=== PATIENT | male | born 1990 | race African-American/Black ===

== ENCOUNTER 2018-01-04 12:03 | Emergency (ER) | payer OTHER ==
[2018-01-04 12:48] LABS: ADD MAN DIFF? NO
[2018-01-04 12:58] LABS: BASO % 1 % (0-3); EOS # 0.3 x10^3/uL (0.0-0.7); EOS % 8 % (0-3); HEMATOCRIT 43.7 % (39.0-53.0); HEMOGLOBIN 15.2 g/dL (13.0-17.5); LYMPH # 2.3 x10^3/uL (1.0-4.8); LYMPH % 53 % (24-48); MEAN CORPUSCULAR HEMOGLOBIN 29 pg (25-35); MEAN CORPUSCULAR HGB CONC 35 g/dL (31-37); MEAN CORPUSCULAR VOLUME 82 fL (79-100); MONO # 0.6 x10^3/uL (0.0-1.1); MONO % 13 % (0-9); NEUT # 1.1 x10^3uL (1.8-7.7); NEUT % 26 % (31-73); PLATELET COUNT 127 x10^3/uL (140-400); RED BLOOD COUNT 5.34 x10^6/uL (4.30-5.70); RED CELL DISTRIBUTION WIDTH 13.9 % (11.5-14.5); WHITE BLOOD COUNT 4.3 x10^3/uL (4.0-11.0)
[2018-01-04 13:05] LABS: ANION GAP 7 (6-14); BLOOD UREA NITROGEN 15 mg/dL (8-26); BUN/CREATININE RATIO 17 (6-20); CALCIUM 8.9 mg/dL (8.5-10.1); CARBON DIOXIDE 28 mmol/L (21-32); CHLORIDE 101 mmol/L (98-107); CREATININE 0.9 mg/dL (0.7-1.3); GFR 100.5; GLUCOSE 84 mg/dL (70-99); POTASSIUM 3.7 mmol/L (3.5-5.1); SODIUM 136 mmol/L (136-145)
[2018-01-04] MEDS: KETOROLAC 30 MG/ML INJ. IM (13:07)
[2018-01-04 13:11] LABS: ALBUMIN 3.3 g/dL (3.4-5.0); ALBUMIN/GLOBULIN RATIO 0.8 (1.0-1.7); ALK PHOS 98 U/L (46-116); ALT (SGPT) 24 U/L (16-63); AST (SGOT) 27 U/L (15-37); LIPASE 127 U/L (73-393); TOTAL BILIRUBIN 1.3 mg/dL (0.2-1.0); TOTAL PROTEIN 7.7 g/dL (6.4-8.2)
[2018-01-04 13:15] LABS: TROPONINI < 0.017 ng/mL (0.000-0.055)
== END 2018-01-04 13:47 | disposition home or self-care (01) ==
LOC: ER 12:03
DX: G89.29 Other chronic pain (principal); R07.89 Other chest pain; R10.9 Unspecified abdominal pain; R51 Headache
CPT/HCPCS: 36415; 71046; 80053; 83690; 84484; 85025; 93005; 96372; 99285-25; J1885

== ENCOUNTER → 2018-03-28 | Outpatient (CLI) | payer OTHER ==
[2018-01-04 12:10] VITALS: BP 116/67
--- NOTE | 2018-03-28 13:31 | RAD ---
Abdominal ultrasound, 03/28/2018: HISTORY: Splenomegaly The gallbladder is within normal limits in size. There is no sonographic evidence of cholelithiasis. No gallbladder wall thickening is evident. No hepatic mass or bile duct dilatation is seen. The visualized portions of the pancreas and both kidneys are unremarkable. The spleen measures 14 cm in craniocaudad extent. The upper abdominal aorta and inferior vena cava are unremarkable. Inferiorly those structures were obscured by overlying bowel. No free fluid is evident in the abdomen. IMPRESSION: 1. Mild splenomegaly. 2. No other abdominal abnormality is detected. Electronically signed by: Nasim Cullen MD (03/28/2018 1:29 PM) [facility]
== END | disposition home or self-care (01) ==
LOC: US 08:52
PROVIDERS: ATTEND Family Medicine
DX: R16.1 Splenomegaly, not elsewhere classified (principal)
CPT/HCPCS: 76700